=== PATIENT | female | born 1960 | race Two or more races ===

== ENCOUNTER 2025-04-05 07:01 | Day surgery (SDC) | payer BC ==
[2025-04-05] VITALS (8 sets, daily range): BP systolic 122–154; BP diastolic 73–87; PULSE 62–75; RESP 11–17; TEMP 97.3; O2SAT 93–97
[~2025-04-05] VITALS: Ht 167.6 cm; Wt 92.1 kg
[~2025-04-05 07:01] MED LIST: ALIR75PE5 SQ; ASCO-22 PO; CHOL25CA2 PO; LOSA25TA41 PO; SEMA2PEN SQ; ringers solution, lacted 1,000 ML IV SCH; simethicone 40mg/0.6ml oral drops 15ml PO ONE
--- NOTE | 2025-04-05 07:40 | ELECTROCARDIOGRAPH REPORT ---
[facility] Test Date: 2025-04-05 Test Time: 07:37:37 Pat Name: AISHWARYA WHITEHEAD Department: [facility] Patient ID: [facility]-[id number] Room: Gender: F [employer]: REMA : [id number] Requested By: RICARDA YAP Order Number: [id number] Reading MD: Dr. CLEMENTINA Matute Measurements Intervals [place] Rate: 79 P: 61 [place]: 135 QRS: 79 QRSD: 89 T: 47 QT: 370 QTc: 425 Interpretive Statements Sinus rhythm Borderline low voltage, extremity leads Electronically Signed On 04-05-2025 17:11:[address] CLEMENTINA Matute Please click the below link to view image of tracing.
[2025-04-05] MEDS ORDERED: fentaNYL/PF 50MCG/1 ML 2ML syringe ONE (09:06)
[2025-04-05] MEDS ORDERED: MIDAZolam 1 MG/ML 5ML VIAL ONE (09:06)
== END 2025-04-05 10:45 | disposition home or self-care (01) ==
LOC: GI LAB 07:01
PROVIDERS: ATTEND Internal Medicine Gastroenterology
DX: Z12.11 Encounter for screening for malignant neoplasm of colon (principal); K64.8 Other hemorrhoids; I10 Essential (primary) hypertension; E11.9 Type 2 diabetes mellitus without complications; E78.5 Hyperlipidemia, unspecified; E66.9 Obesity, unspecified; Z86.0100 Personal history of colon polyps, unspecified; Z79.899 Other long term (current) drug therapy; Z68.32 Body mass index [BMI] 32.0-32.9, adult
CPT/HCPCS: 45378; 82948; 93005; 99152; J2250; J3010; J7120; Z7512; A4620